=== PATIENT | female | born 1975 | race Two or more races ===

== ENCOUNTER 2021-06-15 23:20 | Inpatient (IN) | payer OTHER ==
[2021-06-15] MEDS ORDERED: ACETAMINOPHEN 1000 MG/100 ML BAG IVPB ONE (23:45)
[2021-06-15] MEDS ORDERED: SODIUM CHLORIDE 0.9% 500 ML INFUS.BAG IV ONE (23:59)
[2021-06-16 00:34] LABS: HEMATOCRIT 23.8 % (32.4-45.2); HEMOGLOBIN 7.6 GM/dL (10.7-15.3); MCH 29.1 pg (25.7-33.7); MCHC 32.1 g/dl (32.0-36.0); MEAN CELL VOLUME 90.5 fl (80-96); MEAN PLT VOLUME 7.3 fl (7.5-11.1); PLATELET COUNT 363 10^3/uL (134-434); RBC 2.63 M/mm3 (3.60-5.2); RDW 16.7 % (11.6-15.6); WHITE BLOOD COUNT 9.6 K/mm3 (4.0-10.0)
[2021-06-16 00:53] LABS: INR 1.14 (0.83-1.09); PROTHROMBIN TIME (PATIENT) 13.1 SEC (9.7-13.0)
[2021-06-16 00:55] LABS: VENOUS BASE EXCESS -2.5 mmol/L (-2-2); VENOUS O2 SATURATION 73.2 % (70-80); VENOUS PCO2 39.3 mmHg (38-52); VENOUS PH 7.375 (7.310-7.410)
[2021-06-16] MEDS ORDERED: ACETAMINOPHEN INJECTION 100 ML IVPB ONE (00:55)
[2021-06-16 00:56] LABS: ACTIVATED PTT 30.6 SECONDS (25.2-36.5)
[2021-06-16 01:02] LABS: CHLORIDE 101 mmol/L (98-107); SODIUM 135 mmol/L (136-145)
[2021-06-16] MEDS ORDERED: VANCOMYCIN 1 GM in D5W (PRE-DOCKED) 1,000 MG/250 ML IVPB ONE (01:02)
[2021-06-16] MEDS ORDERED: PIPERACILLIN/TAZOB 4.5 GM 4.5 GM in DEXTROSE 5%-WATER 100 ML IVPB ONE (01:02)
[2021-06-16 01:04] LABS: BLOOD UREA NITROGEN 25.4 mg/dL (7-18); CALCIUM 7.9 mg/dL (8.5-10.1)
[2021-06-16 01:05] LABS: ALBUMIN 2.1 g/dl (3.4-5.0); ANION GAP 12 MMOL/L (8-16); CO2 21 mmol/L (21-32)
[2021-06-16 01:08] LABS: CREATININE 1.7 mg/dL (0.55-1.3); SGOT/AST 47 U/L (15-37); SGPT/ALT 26 U/L (13-61)
[2021-06-16 01:09] LABS: BILIRUBIN,TOTAL 0.5 mg/dL (0.2-1); TOT PROT 5.9 g/dl (6.4-8.2)
[2021-06-16 01:10] LABS: ALK PHOS 104 U/L (45-117)
[2021-06-16 01:15] LABS: LACTIC ACID 2.1 mmol/L (0.4-2.0)
[2021-06-16 01:16] LABS: GLUCOSE,RANDOM 605 mg/dL (74-106)
[2021-06-16] MEDS ORDERED: HYDROmorphone HCL CARPU-JECT 2 MG/1 ML DISP.SYRIN IVPUSH ONE ×3 (01:26→05:04)
[2021-06-16] MEDS ORDERED: SODIUM CHLORIDE 0.9%/KCL 20 MEQ/1,000 ML INFUS.BAG IV SCH (01:30)
[2021-06-16] MEDS ORDERED: INSULIN REGULAR 100 UNITS in SODIUM CHLORIDE 99 ML IVPB SCH ×3 (01:30→09:00)
[2021-06-16] MEDS ORDERED: PIPERACILLIN/TAZOB 4.5 GM 4.5 GM/100 ML BAG IVPB ONE (01:42)
[2021-06-16] MEDS ORDERED: HYDROmorphone HCl 2 MG/ML VIAL ONE ×3 (01:42→05:21)
[2021-06-16 01:46] LABS: EPI CELLS 1 /uL (0-25.1); HYALINE CASTS 1 /uL (0-3.1); PH,URINE 5.5 (5.0-8.0); URINE APPEARANCE CLOUDY; URINE BACTERIA >9,000 /uL (0-1359); URINE BILIRUBIN NEGATIVE (NEGATIVE); URINE COLOR YELLOW; URINE GLUCOSE (UA) 2+ (NEGATIVE); URINE KETONE NEGATIVE (NEGATIVE); URINE LEUK ESTERASE 2+ (NEGATIVE); URINE NITRITE NEGATIVE (NEGATIVE); URINE PROTEIN 2+ (NEGATIVE); URINE RBC 63 /uL (0-23.9); URINE UROBILINOGEN 0.2 mg/dL (0.2-1.0); URINE WBC 658 /uL (0-25.8)
[2021-06-16] MEDS ORDERED: VANCOMYCIN 1 GRAM (PRE-DOCKED) 1,000 MG/250 ML BAG IVPB ONE (02:21)
[2021-06-16 03:29] LABS: ANISOCYTOSIS 1+; MACROCYTOSIS 0
[2021-06-16] MEDS ORDERED: LACTATED RINGERS SOLUTION 1000 ML INFUS.BAG IV ONE ×2 (05:52→08:55)
[2021-06-16] MEDS ORDERED: DEXTROSE 5%-0.45% SALINE 1,000 ML IV SCH (06:45)
[2021-06-16 07:30] LABS: CALCIUM 7.1 mg/dL (8.5-10.1)
[2021-06-16 07:31] LABS: BLOOD UREA NITROGEN 23.4 mg/dL (7-18)
[2021-06-16 07:34] LABS: CREATININE 1.3 mg/dL (0.55-1.3)
[2021-06-16 10:56] LABS: CALCIUM 7.2 mg/dL (8.5-10.1)
[2021-06-16 10:57] LABS: BLOOD UREA NITROGEN 21.6 mg/dL (7-18)
[2021-06-16 11:00] LABS: CREATININE 1.1 mg/dL (0.55-1.3)
[2021-06-16] MEDS ORDERED: PIPERACILLIN/TAZOB 3.375 GM 3.375 GM in DEXTROSE 5%-WATER - 50 ML IVPB ONE (11:41)
[2021-06-16] MEDS ORDERED: PIPERACILLIN/TAZOBACTAM 3.375 GM VIAL IVPB ONE ×3 (11:56→22:52)
[2021-06-16] MEDS ORDERED: DEXTROSE 5%-WATER - 50 ML IVPB ONE ×3 (11:57→22:52)
[2021-06-16] MEDS: PIPERACILLIN/TAZOB 3.375 GM 3.375 GM in DEXTROSE 5%-WATER - 50 ML IVPB SCH ×3 (12:37→22:54)
[2021-06-16] MEDS ORDERED: LORazepam 0.5 MG TABLET PO PRN (13:33)
[2021-06-16] MEDS ORDERED: LACTATED RINGERS SOLUTION 1,000 ML/1,000 ML INFUS.BAG IV SCH ×2 (14:45→17:25)
[2021-06-16] MEDS: INSULIN (NOVOLOG) ASPART 100 UNITS/ML 10ML VIAL SQ SCH (17:06)
[2021-06-16] MEDS: INSULIN SLIDING SCALE (NOVOLOG) 1 VIAL SQ SCH (17:06)
[2021-06-16 17:15] LABS: BASO % 0.5 % (0-2.0); EOS % 1.9 % (0-4.5); HEMATOCRIT 21.1 % (32.4-45.2); MCH 28.6 pg (25.7-33.7); MCHC 32.4 g/dl (32.0-36.0); MEAN CELL VOLUME 88.2 fl (80-96); MONO % 5.9 % (3.8-10.2); NEUT % 87.7 % (42.8-82.8); PLATELET COUNT 289 10^3/uL (134-434); RBC 2.39 M/mm3 (3.60-5.2); RDW 16.3 % (11.6-15.6); WHITE BLOOD COUNT 8.5 K/mm3 (4.0-10.0)
[2021-06-16 17:19] LABS: HEMOGLOBIN 6.8 GM/dL (10.7-15.3)
[2021-06-16] MEDS: ACETAMINOPHEN 1000 MG/100 ML BAG IVPB PRN (22:30)
[2021-06-17] MEDS ORDERED: VANCOMYCIN 1 GM in D5W (PRE-DOCKED) 1,000 MG/250 ML IVPB SCH (01:00)
[2021-06-17] MEDS ORDERED: VANCOMYCIN 1 GM in D5W (PRE-DOCKED) 1,000 MG/250 ML IVPB ONE ×3 (01:00→08:00)
[2021-06-17] MEDS ORDERED: PIPERACILLIN/TAZOBACTAM 3.375 GM VIAL IVPB ONE ×3 (05:29→16:14)
[2021-06-17] MEDS ORDERED: DEXTROSE 5%-WATER - 50 ML IVPB ONE ×3 (05:29→16:14)
[2021-06-17] MEDS: PIPERACILLIN/TAZOB 3.375 GM 3.375 GM in DEXTROSE 5%-WATER - 50 ML IVPB SCH ×3 (05:39→18:44)
[2021-06-17] MEDS: INSULIN (LEVEMIR) 100 UNITS/ML UNITS SQ SCH ×2 (06:54→16:52)
[2021-06-17] MEDS: INSULIN SLIDING SCALE (NOVOLOG) 1 VIAL SQ SCH ×3 (06:57→16:50)
[2021-06-17] MEDS: INSULIN (NOVOLOG) ASPART 100 UNITS/ML 10ML VIAL SQ SCH ×3 (06:59→16:52)
[2021-06-17] MEDS ORDERED: VANCOMYCIN 1 GM/200 ML PREMIX BAG IVPB ONE (08:00)
[2021-06-17] MEDS: ACETAMINOPHEN 1000 MG/100 ML BAG IVPB PRN (08:18)
[2021-06-17 08:40] LABS: HEMATOCRIT 27.2 % (32.4-45.2); HEMOGLOBIN 9.1 GM/dL (10.7-15.3); MCH 29.5 pg (25.7-33.7); MCHC 33.4 g/dl (32.0-36.0); MEAN CELL VOLUME 88.2 fl (80-96); PLATELET COUNT 310 10^3/uL (134-434); RBC 3.08 M/mm3 (3.60-5.2); RDW 15.6 % (11.6-15.6); WHITE BLOOD COUNT 8.6 K/mm3 (4.0-10.0)
[2021-06-17 08:51] LABS: CALCIUM 7.9 mg/dL (8.5-10.1)
[2021-06-17 08:52] LABS: BLOOD UREA NITROGEN 16.4 mg/dL (7-18); MAGNESIUM 1.8 mg/dL (1.8-2.4)
[2021-06-17] MEDS ORDERED: ENOXAPARIN NA (PORCINE) 40 MG/0.4 ML DISP.SYRIN SQ SCH (10:00)
[2021-06-17 10:18] LABS: ANISOCYTOSIS 1+; MACROCYTOSIS 0
[2021-06-17] MEDS ORDERED: POTASSIUM CHLORIDE TABS 20 MEQ TABLET.ER (FP) PO ONE ×2 (13:03→17:00)
[2021-06-17] MEDS ORDERED: ENOXAPARIN NA (PORCINE) 60 MG/0.6 ML DISP.SYRIN SQ ONE (13:05)
[2021-06-17] MEDS ORDERED: NAPH,MB-DB/K PH,MBDB POWDER PACKET PO ONE (13:10)
[2021-06-17] MEDS ORDERED: LACTATED RINGERS SOLUTION 1,000 ML/1,000 ML INFUS.BAG IV SCH (13:15)
[2021-06-17] MEDS ORDERED: FUROSEMIDE 40 MG/4 ML INJECTABLE VIAL IVPUSH ONE (13:23)
[2021-06-17] MEDS ORDERED: SULFAMETHOXAZOLE/TRIMETHOPRIM 800MG/160MG D.S. TABLET PO SCH (14:00)
[2021-06-17] MEDS ORDERED: LACTULOSE 20 GM/30 ML UDC (FOR ORAL USE ONLY) PO PRN (15:13)
[2021-06-17] MEDS ORDERED: SENNOSIDES 8.6MG TABLET (FP) PO PRN (15:13)
[2021-06-17] MEDS: methaDONE HCL 10 MG TABLET PO SCH ×2 (15:34→22:21)
[2021-06-17] MEDS ORDERED: ACETAMINOPHEN 500 MG TABLET (FP) PO PRN (17:42)
[2021-06-17] MEDS ORDERED: ENOXAPARIN NA (PORCINE) 60 MG/0.6 ML DISP.SYRIN SQ SCH (22:00)
[2021-06-17] MEDS ORDERED: PATIENT'S OWN MEDICATION (NON-FORMULARY) (Pregabalin [Lyrica -] 150 MG Capsule) PO SCH (22:00)
[2021-06-17] MEDS ORDERED: PREGABALIN 100 MG CAPSULE ONE (22:09)
[2021-06-17] MEDS ORDERED: PREGABALIN 50 MG CAPSULE ONE (22:09)
[2021-06-17] MEDS: BACLOFEN 10 MG TABLET (FP) PO SCH (22:20)
[2021-06-17] MEDS: PREGABALIN 100 MG, PREGABALIN 50 MG PO SCH (22:20)
[2021-06-17] MEDS: ATORVASTATIN CA 40 MG TABLET (FP) PO SCH (22:20)
[2021-06-18] MEDS ORDERED: DEXTROSE 5%-WATER - 50 ML IVPB ONE ×5 (01:02→23:33)
[2021-06-18] MEDS ORDERED: PIPERACILLIN/TAZOBACTAM 3.375 GM VIAL IVPB ONE ×5 (01:02→23:33)
[2021-06-18] MEDS: PIPERACILLIN/TAZOB 3.375 GM 3.375 GM in DEXTROSE 5%-WATER - 50 ML IVPB SCH ×5 (01:08→17:13)
[2021-06-18] MEDS: methaDONE HCL 10 MG TABLET PO SCH ×3 (06:45→22:03)
[2021-06-18] MEDS: BACLOFEN 10 MG TABLET (FP) PO SCH ×3 (06:47→22:05)
[2021-06-18] MEDS: INSULIN (NOVOLOG) ASPART 100 UNITS/ML 10ML VIAL SQ SCH ×3 (06:55→17:09)
[2021-06-18] MEDS: INSULIN SLIDING SCALE (NOVOLOG) 1 VIAL SQ SCH ×3 (06:57→17:08)
[2021-06-18] MEDS: INSULIN (LEVEMIR) 100 UNITS/ML UNITS SQ SCH ×2 (06:57→17:10)
[2021-06-18] MEDS ORDERED: PREGABALIN 50 MG CAPSULE ONE ×2 (09:01→21:53)
[2021-06-18] MEDS ORDERED: PREGABALIN 100 MG CAPSULE ONE ×2 (09:02→21:54)
[2021-06-18] MEDS ORDERED: VANCOMYCIN/WATER FOR INJ (PEG) 1,000 MG/200 ML BAG IVPB SCH (10:00)
[2021-06-18] MEDS ORDERED: ENOXAPARIN NA (PORCINE) 40 MG/0.4 ML DISP.SYRIN SQ SCH (10:00)
[2021-06-18] MEDS: DOCUSATE SODIUM 100 MG CAPSULE (FP) PO SCH (10:27)
[2021-06-18] MEDS: PREGABALIN 100 MG, PREGABALIN 50 MG PO SCH ×2 (10:27→22:03)
[2021-06-18] MEDS: MAGNESIUM OXIDE 400 MG TABLET (FP) PO SCH (10:28)
[2021-06-18] MEDS: predniSONE 10 MG TABLET (UD) PO SCH (10:28)
[2021-06-18] MEDS: POLYETHYLENE GLYCOL (HEALTHYLAX) 3350 17 GM PACKET PO SCH (10:28)
[2021-06-18] MEDS: BISACODYL 10 MG SUPP.RECT RC SCH (10:28)
[2021-06-18 12:10] LABS: BASO % 0.8 % (0-2.0); EOS % 2.5 % (0-4.5); HEMATOCRIT 25.1 % (32.4-45.2); HEMOGLOBIN 8.3 GM/dL (10.7-15.3); LYMPH % 8.4 % (8-40); MCH 28.9 pg (25.7-33.7); MCHC 33.1 g/dl (32.0-36.0); MEAN CELL VOLUME 87.4 fl (80-96); MEAN PLT VOLUME 6.7 fl (7.5-11.1); MONO % 13.3 % (3.8-10.2); PLATELET COUNT 273 10^3/uL (134-434); RBC 2.87 M/mm3 (3.60-5.2); RDW 16.3 % (11.6-15.6); WHITE BLOOD COUNT 4.9 K/mm3 (4.0-10.0)
[2021-06-18 12:34] LABS: CALCIUM 7.8 mg/dL (8.5-10.1)
[2021-06-18 12:35] LABS: ALBUMIN 1.8 g/dl (3.4-5.0); BLOOD UREA NITROGEN 12.8 mg/dL (7-18)
[2021-06-18 12:38] LABS: CREATININE 0.9 mg/dL (0.55-1.3)
[2021-06-18 12:39] LABS: BILIRUBIN,TOTAL 0.7 mg/dL (0.2-1)
[2021-06-18 12:40] LABS: TOT PROT 4.8 g/dl (6.4-8.2)
[2021-06-18 13:30] LABS: ANISOCYTOSIS 1+; MACROCYTOSIS 0; PLATELET ESTIMATE NORMAL
[2021-06-18] MEDS: ATORVASTATIN CA 40 MG TABLET (FP) PO SCH (22:05)
[2021-06-19] MEDS: PIPERACILLIN/TAZOB 3.375 GM 3.375 GM in DEXTROSE 5%-WATER - 50 ML IVPB SCH ×3 (00:05→12:50)
[2021-06-19] MEDS ORDERED: DEXTROSE 5%-WATER - 50 ML IVPB ONE ×2 (05:58→12:45)
[2021-06-19] MEDS ORDERED: PIPERACILLIN/TAZOBACTAM 3.375 GM VIAL IVPB ONE ×2 (05:58→12:45)
[2021-06-19] MEDS: BACLOFEN 10 MG TABLET (FP) PO SCH ×3 (06:13→23:28)
[2021-06-19] MEDS: methaDONE HCL 10 MG TABLET PO SCH (06:15)
[2021-06-19] MEDS: INSULIN (LEVEMIR) 100 UNITS/ML UNITS SQ SCH ×2 (06:16→16:58)
[2021-06-19] MEDS: INSULIN (NOVOLOG) ASPART 100 UNITS/ML 10ML VIAL SQ SCH ×3 (06:16→17:00)
[2021-06-19] MEDS: INSULIN SLIDING SCALE (NOVOLOG) 1 VIAL SQ SCH ×4 (06:17→16:59)
[2021-06-19] MEDS ORDERED: SULFAMETHOXAZOLE/TRIMETHOPRIM 800MG/160MG D.S. TABLET PO SCH (10:00)
[2021-06-19] MEDS ORDERED: BACITRACIN 15 GM TUBE TOPICAL OINTMENT TP SCH (10:00)
[2021-06-19] MEDS ORDERED: FUROSEMIDE 20 MG TABLET (FP) PO PRN ×2 (10:00→19:25)
[2021-06-19] MEDS ORDERED: APIXABAN 2.5 MG TABLET PO SCH (10:00)
[2021-06-19] MEDS ORDERED: PREGABALIN 50 MG CAPSULE ONE ×2 (10:42→23:03)
[2021-06-19] MEDS ORDERED: PREGABALIN 100 MG CAPSULE ONE ×2 (10:42→23:04)
[2021-06-19] MEDS ORDERED: ACETAMINOPHEN 1000 MG/100 ML BAG IVPB PRN ×2 (10:50→19:25)
[2021-06-19] MEDS ORDERED: SODIUM CHLORIDE 1,000 ML IV SCH (11:00)
[2021-06-19] MEDS ORDERED: LORazepam 2 MG/ML SDV VIAL IVPUSH ONE (11:03)
[2021-06-19] MEDS: BISACODYL 10 MG SUPP.RECT RC SCH (12:15)
[2021-06-19] MEDS ORDERED: LACTATED RINGERS SOLUTION 1000 ML INFUS.BAG IV ONE (12:23)
[2021-06-19] MEDS: DOCUSATE SODIUM 100 MG CAPSULE (FP) PO SCH (12:36)
[2021-06-19] MEDS: predniSONE 10 MG TABLET (UD) PO SCH (12:36)
[2021-06-19] MEDS: MAGNESIUM OXIDE 400 MG TABLET (FP) PO SCH (12:37)
[2021-06-19] MEDS: PREGABALIN 100 MG, PREGABALIN 50 MG PO SCH ×3 (12:37→23:29)
[2021-06-19] MEDS: POLYETHYLENE GLYCOL (HEALTHYLAX) 3350 17 GM PACKET PO SCH (12:37)
[2021-06-19] MEDS: VANCOMYCIN/WATER FOR INJ (PEG) 1,000 MG/200 ML BAG IVPB SCH (14:17)
[2021-06-19 14:30] LABS: BASO % 0.5 % (0-2.0); CALCIUM 7.5 mg/dL (8.5-10.1); EOS % 2.4 % (0-4.5); HEMATOCRIT 24.8 % (32.4-45.2); HEMOGLOBIN 8.2 GM/dL (10.7-15.3); LYMPH % 7.9 % (8-40); MCH 28.9 pg (25.7-33.7); MEAN CELL VOLUME 87.6 fl (80-96); MEAN PLT VOLUME 6.9 fl (7.5-11.1); MONO % 11.4 % (3.8-10.2); NEUT % 77.8 % (42.8-82.8); PLATELET COUNT 253 10^3/uL (134-434); RBC 2.83 M/mm3 (3.60-5.2); RDW 15.8 % (11.6-15.6); WHITE BLOOD COUNT 3.9 K/mm3 (4.0-10.0)
[2021-06-19 14:31] LABS: ALBUMIN 1.5 g/dl (3.4-5.0); BLOOD UREA NITROGEN 7.5 mg/dL (7-18); MAGNESIUM 1.6 mg/dL (1.8-2.4)
[2021-06-19] MEDS ORDERED: MAGNESIUM SULF 50% (8.12 MEQ/2 ML-1 GM VIAL) IVPB ONE (14:32)
[2021-06-19 14:34] LABS: CREATININE 0.7 mg/dL (0.55-1.3); PHOSPHOROUS 2.2 mg/dL (2.5-4.9)
[2021-06-19 14:36] LABS: BILIRUBIN,TOTAL 0.4 mg/dL (0.2-1); TOT PROT 4.2 g/dl (6.4-8.2)
[2021-06-19] MEDS: MEROPENEM 1 GM in DEXTROSE 5%-WATER 100 ML IVPB SCH ×2 (15:30→17:32)
[2021-06-19] MEDS ORDERED: MEROPENEM 1 GM VIAL (RESTRICTED TO ID) IVPB ONE (16:09)
[2021-06-19] MEDS ORDERED: DEXTROSE 5%-WATER 100 ML IVPB ONE (16:10)
[2021-06-19] MEDS ORDERED: MAGNESIUM 1GM/D5W 100ML - 100 ML IVPB IVPB ONE (16:30)
[2021-06-19] MEDS ORDERED: SODIUM CHLORIDE 1,000 ML IV STA (16:53)
[2021-06-19] MEDS ORDERED: NAPH,MB-DB/K PH,MBDB POWDER PACKET PO ONE (17:22)
[2021-06-19] MEDS ORDERED: POTASSIUM PHOSPHATE 15 MM in DEXTROSE 5%-WATER - 250 ML IVPB ONE (18:35)
[2021-06-19 18:46] LABS: BASO % 0.6 % (0-2.0); EOS % 2.3 % (0-4.5); HEMATOCRIT 32.8 % (32.4-45.2); HEMOGLOBIN 10.8 GM/dL (10.7-15.3); LYMPH % 12.9 % (8-40); MCH 29.1 pg (25.7-33.7); MCHC 32.8 g/dl (32.0-36.0); MEAN CELL VOLUME 88.7 fl (80-96); MEAN PLT VOLUME 6.7 fl (7.5-11.1); MONO % 12.4 % (3.8-10.2); NEUT % 71.8 % (42.8-82.8); PLATELET COUNT 294 10^3/uL (134-434); RDW 16.2 % (11.6-15.6); WHITE BLOOD COUNT 4.4 K/mm3 (4.0-10.0)
[2021-06-19 18:50] LABS: INR 1.09 (0.83-1.09); PROTHROMBIN TIME (PATIENT) 12.5 SEC (9.7-13.0)
[2021-06-19 18:53] LABS: ACTIVATED PTT 36.5 SECONDS (25.2-36.5)
[2021-06-19 19:10] LABS: ANISOCYTOSIS 2+; MACROCYTOSIS 0
[2021-06-19 19:11] LABS: CALCIUM 7.9 mg/dL (8.5-10.1)
[2021-06-19 19:12] LABS: ALBUMIN 1.7 g/dl (3.4-5.0)
[2021-06-19 19:15] LABS: CREATININE 0.8 mg/dL (0.55-1.3)
[2021-06-19 19:17] LABS: BILIRUBIN,TOTAL 0.4 mg/dL (0.2-1)
[2021-06-19 19:19] LABS: BLOOD UREA NITROGEN 8.6 mg/dL (7-18)
[2021-06-19 19:25] LABS: EPI CELLS 14 /uL (0-25.1); HYALINE CASTS 16 /uL (0-3.1); PH,URINE 7.5 (5.0-8.0); URINE APPEARANCE CLOUDY; URINE BACTERIA 101 /uL (0-1359); URINE BILIRUBIN NEGATIVE (NEGATIVE); URINE COLOR YELLOW; URINE GLUCOSE (UA) NEGATIVE (NEGATIVE); URINE KETONE NEGATIVE (NEGATIVE); URINE LEUK ESTERASE 2+ (NEGATIVE); URINE NITRITE NEGATIVE (NEGATIVE); URINE PROTEIN 1+ (NEGATIVE); URINE RBC 632 /uL (0-23.9); URINE UROBILINOGEN 0.2 mg/dL (0.2-1.0); URINE WBC 812 /uL (0-25.8)
[2021-06-19] MEDS ORDERED: SENNOSIDES 8.6MG TABLET (FP) PO PRN (19:25)
[2021-06-19] MEDS ORDERED: LORazepam 0.5 MG TABLET PO PRN (19:25)
[2021-06-19] MEDS ORDERED: LACTULOSE 20 GM/30 ML UDC (FOR ORAL USE ONLY) PO PRN (19:25)
[2021-06-19] MEDS: SODIUM CHLORIDE 1,000 ML IV SCH (19:51)
[2021-06-19 20:01] LABS: YEAST FEW (NEGATIVE)
[2021-06-19] MEDS ORDERED: HYDROmorphone HCL 2 MG TABLET PO PRN (22:01)
[2021-06-19] MEDS ORDERED: DEXTROSE 50%-WATER 25 GM/50 ML DISP.SYRIN ONE (23:09)
[2021-06-19] MEDS ORDERED: DEXTROSE 50%-WATER - 25 GM/50 ML VIAL IVPUSH ONE (23:13)
[2021-06-19] MEDS: MUPIROCIN 2% TOPICAL OINTMENT FOR DECOLONIZATION NS SCH ×2 (23:13→23:28)
[2021-06-19] MEDS: APIXABAN 2.5 MG TABLET PO SCH ×2 (23:14→23:28)
[2021-06-19] MEDS: ATORVASTATIN CA 40 MG TABLET (FP) PO SCH ×2 (23:14→23:28)
[2021-06-19] MEDS: CHLORHEXIDINE GLUCONATE 4% CLEANSER FOR DECOLONIZATION TP SCH (23:14)
[2021-06-19] MEDS ORDERED: DEXTROSE 5%-WATER - 1,000 ML IV SCH (23:15)
[2021-06-20] MEDS ORDERED: MEROPENEM 1 GM VIAL (RESTRICTED TO ID) IVPB ONE ×3 (01:17→16:56)
[2021-06-20] MEDS ORDERED: DEXTROSE 5%-WATER 100 ML IVPB ONE ×3 (01:17→16:56)
[2021-06-20] MEDS: VANCOMYCIN/WATER FOR INJ (PEG) 1,000 MG/200 ML BAG IVPB SCH ×3 (01:18→23:51)
[2021-06-20] MEDS: MEROPENEM 1 GM in DEXTROSE 5%-WATER 100 ML IVPB SCH ×3 (01:19→17:28)
[2021-06-20] MEDS ORDERED: INSULIN (LEVEMIR) 100 UNITS/ML UNITS SQ SCH (07:00)
[2021-06-20] MEDS: INSULIN (NOVOLOG) ASPART 100 UNITS/ML 10ML VIAL SQ SCH ×3 (07:02→18:00)
[2021-06-20] MEDS ORDERED: DEXTROSE 50%-WATER 25 GM/50 ML DISP.SYRIN IVPUSH ONE (07:02)
[2021-06-20] MEDS: INSULIN SLIDING SCALE (NOVOLOG) 1 VIAL SQ SCH ×3 (07:03→17:30)
[2021-06-20] MEDS ORDERED: DEXTROSE 50%-WATER 25 GM/50 ML DISP.SYRIN ONE (07:04)
[2021-06-20] MEDS: DEXTROSE 5%-WATER - 1,000 ML IV SCH ×2 (07:24→10:02)
[2021-06-20] MEDS ORDERED: HYDROmorphone HCl 2 MG/ML VIAL ONE (09:42)
[2021-06-20] MEDS ORDERED: HYDROmorphone HCL CARPU-JECT 2 MG/1 ML DISP.SYRIN IVPB ONE (09:45)
[2021-06-20] MEDS ORDERED: HYDROmorphone HCl 2 MG/ML VIAL IVPB ONE (09:45)
[2021-06-20] MEDS ORDERED: PREGABALIN 100 MG CAPSULE ONE ×2 (10:41→21:55)
[2021-06-20] MEDS ORDERED: PREGABALIN 50 MG CAPSULE ONE ×2 (10:41→21:55)
[2021-06-20] MEDS: APIXABAN 2.5 MG TABLET PO SCH (11:45)
[2021-06-20] MEDS: DOCUSATE SODIUM 100 MG CAPSULE (FP) PO SCH (11:56)
[2021-06-20] MEDS: ENOXAPARIN NA (PORCINE) 40 MG/0.4 ML DISP.SYRIN SQ SCH (12:19)
[2021-06-20] MEDS: LORazepam 2 MG/ML SDV VIAL IM PRN (12:19)
[2021-06-20] MEDS: FUROSEMIDE 40 MG/4 ML INJECTABLE VIAL IVPB SCH (12:19)
[2021-06-20] MEDS: POLYETHYLENE GLYCOL (HEALTHYLAX) 3350 17 GM PACKET PO SCH (12:22)
[2021-06-20] MEDS: predniSONE 10 MG TABLET (UD) PO SCH (12:22)
[2021-06-20] MEDS: MUPIROCIN 2% TOPICAL OINTMENT FOR DECOLONIZATION NS SCH ×2 (12:22→23:57)
[2021-06-20] MEDS: MAGNESIUM OXIDE 400 MG TABLET (FP) PO SCH (12:23)
[2021-06-20] MEDS: PREGABALIN 100 MG, PREGABALIN 50 MG PO SCH ×2 (12:23→23:07)
[2021-06-20] MEDS ORDERED: DEXTROSE 5%-WATER - 1,000 ML IV SCH ×2 (12:41→13:32)
[2021-06-20] MEDS ORDERED: HYDROmorphone HCl 2 MG/ML VIAL IVPB PRN (14:26)
[2021-06-20] MEDS: BISACODYL 10 MG SUPP.RECT RC SCH (14:35)
[2021-06-20] MEDS: BACITRACIN 15 GM TUBE TOPICAL OINTMENT TP SCH (14:42)
[2021-06-20 15:40] VITALS: BMI 24.4
[2021-06-20] MEDS: INSULIN (LEVEMIR) 100 UNITS/ML UNITS SQ SCH (17:29)
[2021-06-20] MEDS: BACLOFEN 10 MG TABLET (FP) PO SCH ×2 (17:36→23:47)
[2021-06-20] MEDS: ACETAMINOPHEN 1000 MG/100 ML BAG IVPB SCH (18:26)
[2021-06-20 19:54] LABS: ALBUMIN 1.8 g/dl (3.4-5.0); BLOOD UREA NITROGEN 7.5 mg/dL (7-18); EOS % 1.1 % (0-4.5); HEMATOCRIT 34.2 % (32.4-45.2); LYMPH % 19.5 % (8-40); MAGNESIUM 1.6 mg/dL (1.8-2.4); MCH 28.2 pg (25.7-33.7); MCHC 32.1 g/dl (32.0-36.0); MEAN PLT VOLUME 7.6 fl (7.5-11.1); MONO % 10.2 % (3.8-10.2); NEUT % 68.2 % (42.8-82.8); PLATELET COUNT 335 10^3/uL (134-434); RBC 3.88 M/mm3 (3.60-5.2); RDW 15.8 % (11.6-15.6); WHITE BLOOD COUNT 4.5 K/mm3 (4.0-10.0)
[2021-06-20 19:57] LABS: CREATININE 0.9 mg/dL (0.55-1.3); PHOSPHOROUS 2.1 mg/dL (2.5-4.9)
[2021-06-20 19:59] LABS: BILIRUBIN,TOTAL 0.5 mg/dL (0.2-1); TOT PROT 5.4 g/dl (6.4-8.2)
[2021-06-20] MEDS: CHLORHEXIDINE GLUCONATE 4% CLEANSER FOR DECOLONIZATION TP SCH (23:05)
[2021-06-20] MEDS: ATORVASTATIN CA 40 MG TABLET (FP) PO SCH (23:07)
[2021-06-20] MEDS: SODIUM CHLORIDE 1,000 ML IV SCH (23:14)
[2021-06-21] MEDS: ACETAMINOPHEN 1000 MG/100 ML BAG IVPB SCH ×4 (00:45→17:45)
[2021-06-21] MEDS: PREGABALIN 100 MG, PREGABALIN 50 MG PO SCH ×3 (01:03→22:18)
[2021-06-21] MEDS: ATORVASTATIN CA 40 MG TABLET (FP) PO SCH ×2 (01:05→22:19)
[2021-06-21] MEDS ORDERED: DEXTROSE 5%-WATER 100 ML IVPB ONE ×3 (02:38→17:07)
[2021-06-21] MEDS ORDERED: MEROPENEM 1 GM VIAL (RESTRICTED TO ID) IVPB ONE ×3 (02:38→17:07)
[2021-06-21] MEDS: MEROPENEM 2 GM in DEXTROSE 5%-WATER 100 ML IVPB SCH ×3 (03:03→17:39)
[2021-06-21] MEDS: ACYCLOVIR INJECTION 600 MG in DEXTROSE 5%-WATER - 100 ML IVPB SCH ×3 (03:43→18:34)
[2021-06-21] MEDS: BACLOFEN 10 MG TABLET (FP) PO SCH ×3 (05:11→23:05)
[2021-06-21 06:49] LABS: BASO % 0.4 % (0-2.0); EOS % 0.2 % (0-4.5); LYMPH % 10.3 % (8-40); MCH 28.5 pg (25.7-33.7); MCHC 32.4 g/dl (32.0-36.0); MEAN PLT VOLUME 7.5 fl (7.5-11.1); MONO % 9.4 % (3.8-10.2); NEUT % 79.7 % (42.8-82.8); PLATELET COUNT 285 10^3/uL (134-434); RBC 3.52 M/mm3 (3.60-5.2); RDW 16.1 % (11.6-15.6); WHITE BLOOD COUNT 5.1 K/mm3 (4.0-10.0)
[2021-06-21] MEDS: INSULIN (LEVEMIR) 100 UNITS/ML UNITS SQ SCH ×2 (07:27→17:38)
[2021-06-21] MEDS: INSULIN SLIDING SCALE (NOVOLOG) 1 VIAL SQ SCH ×3 (07:28→17:38)
[2021-06-21 07:50] LABS: CALCIUM 7.7 mg/dL (8.5-10.1)
[2021-06-21 07:51] LABS: ALBUMIN 1.8 g/dl (3.4-5.0); BLOOD UREA NITROGEN 9.3 mg/dL (7-18); MAGNESIUM 1.9 mg/dL (1.8-2.4)
[2021-06-21 07:54] LABS: CREATININE 0.8 mg/dL (0.55-1.3)
[2021-06-21 07:55] LABS: BILIRUBIN,TOTAL 0.4 mg/dL (0.2-1)
[2021-06-21] MEDS ORDERED: PREGABALIN 50 MG CAPSULE ONE ×2 (09:47→21:38)
[2021-06-21] MEDS ORDERED: PREGABALIN 100 MG CAPSULE ONE ×2 (09:47→21:38)
[2021-06-21] MEDS ORDERED: SULFAMETHOXAZOLE/TRIMETHOPRIM 800MG/160MG D.S. TABLET PO SCH (10:00)
[2021-06-21] MEDS: ENOXAPARIN NA (PORCINE) 40 MG/0.4 ML DISP.SYRIN SQ SCH (10:13)
[2021-06-21] MEDS: FUROSEMIDE 40 MG/4 ML INJECTABLE VIAL IVPB SCH (10:15)
[2021-06-21] MEDS: POLYETHYLENE GLYCOL (HEALTHYLAX) 3350 17 GM PACKET PO SCH (10:15)
[2021-06-21] MEDS: MAGNESIUM OXIDE 400 MG TABLET (FP) PO SCH (10:16)
[2021-06-21] MEDS: DOCUSATE SODIUM 100 MG CAPSULE (FP) PO SCH (10:16)
[2021-06-21] MEDS: predniSONE 10 MG TABLET (UD) PO SCH (10:16)
[2021-06-21] MEDS: BISACODYL 10 MG SUPP.RECT RC SCH (10:16)
[2021-06-21] MEDS: BACITRACIN 15 GM TUBE TOPICAL OINTMENT TP SCH (10:17)
[2021-06-21] MEDS: MUPIROCIN 2% TOPICAL OINTMENT FOR DECOLONIZATION NS SCH ×2 (10:17→22:18)
[2021-06-21] MEDS ORDERED: POTASSIUM CHLORIDE TABS 20 MEQ TABLET.ER (FP) PO ONE (10:34)
[2021-06-21] MEDS: SODIUM CHLORIDE 1,000 ML IV SCH (12:00)
[2021-06-21] MEDS: VANCOMYCIN/WATER FOR INJ (PEG) 1,000 MG/200 ML BAG IVPB SCH (12:01)
[2021-06-21] MEDS: LORazepam 2 MG/ML SDV VIAL IM PRN (14:20)
[2021-06-21] MEDS ORDERED: SODIUM CHLORIDE 1,000 ML IV STA ×3 (17:18→22:19)
[2021-06-21] MEDS: CHLORHEXIDINE GLUCONATE 4% CLEANSER FOR DECOLONIZATION TP SCH (22:18)
[2021-06-22] MEDS ORDERED: MEROPENEM 1 GM VIAL (RESTRICTED TO ID) IVPB ONE ×3 (00:28→18:04)
[2021-06-22] MEDS ORDERED: DEXTROSE 5%-WATER 100 ML IVPB ONE ×3 (00:28→18:04)
[2021-06-22] MEDS: ACETAMINOPHEN 1000 MG/100 ML BAG IVPB SCH (00:34)
[2021-06-22] MEDS: VANCOMYCIN/WATER FOR INJ (PEG) 1,000 MG/200 ML BAG IVPB SCH (00:36)
[2021-06-22] MEDS: MEROPENEM 2 GM in DEXTROSE 5%-WATER 100 ML IVPB SCH ×3 (01:47→18:10)
[2021-06-22] MEDS: ACYCLOVIR INJECTION 600 MG in DEXTROSE 5%-WATER - 100 ML IVPB SCH ×3 (02:25→21:02)
[2021-06-22] MEDS: BACLOFEN 10 MG TABLET (FP) PO SCH ×3 (05:32→21:41)
[2021-06-22] MEDS: INSULIN SLIDING SCALE (NOVOLOG) 1 VIAL SQ SCH ×3 (06:29→17:24)
[2021-06-22] MEDS: INSULIN (LEVEMIR) 100 UNITS/ML UNITS SQ SCH ×2 (06:29→17:25)
[2021-06-22] MEDS ORDERED: PREGABALIN 100 MG CAPSULE ONE ×2 (09:31→21:35)
[2021-06-22] MEDS ORDERED: PREGABALIN 50 MG CAPSULE ONE ×2 (09:31→21:35)
[2021-06-22] MEDS: PREGABALIN 100 MG, PREGABALIN 50 MG PO SCH ×2 (09:41→21:41)
[2021-06-22] MEDS: predniSONE 10 MG TABLET (UD) PO SCH (09:42)
[2021-06-22] MEDS: MAGNESIUM OXIDE 400 MG TABLET (FP) PO SCH (09:42)
[2021-06-22] MEDS: DOCUSATE SODIUM 100 MG CAPSULE (FP) PO SCH (09:42)
[2021-06-22] MEDS: BISACODYL 10 MG SUPP.RECT RC SCH (09:43)
[2021-06-22] MEDS: POLYETHYLENE GLYCOL (HEALTHYLAX) 3350 17 GM PACKET PO SCH (09:43)
[2021-06-22] MEDS: BACITRACIN 15 GM TUBE TOPICAL OINTMENT TP SCH (09:43)
[2021-06-22] MEDS: MUPIROCIN 2% TOPICAL OINTMENT FOR DECOLONIZATION NS SCH (09:43)
[2021-06-22] MEDS: ENOXAPARIN NA (PORCINE) 40 MG/0.4 ML DISP.SYRIN SQ SCH (09:43)
[2021-06-22] MEDS ORDERED: LACTATED RINGERS SOLUTION 1000 ML INFUS.BAG IV ONE (10:24)
[2021-06-22 11:10] LABS: SARS-CoV-2 NAA Not Detected (Not Detected)
[2021-06-22] MEDS: LACTATED RINGERS SOLUTION 1,000 ML IV SCH ×2 (11:11→11:14)
[2021-06-22] MEDS: SODIUM CHLORIDE 1,000 ML IV SCH (11:15)
[2021-06-22 11:18] LABS: BASO % 0.5 % (0-2.0); EOS % 0.8 % (0-4.5); HEMATOCRIT 29.6 % (32.4-45.2); HEMOGLOBIN 9.7 GM/dL (10.7-15.3); LYMPH % 19.2 % (8-40); MCH 28.8 pg (25.7-33.7); MCHC 32.7 g/dl (32.0-36.0); MEAN CELL VOLUME 88.1 fl (80-96); MEAN PLT VOLUME 7.3 fl (7.5-11.1); MONO % 7.8 % (3.8-10.2); NEUT % 71.7 % (42.8-82.8); PLATELET COUNT 258 10^3/uL (134-434); RBC 3.36 M/mm3 (3.60-5.2); RDW 16.6 % (11.6-15.6); WHITE BLOOD COUNT 3.4 K/mm3 (4.0-10.0)
[2021-06-22 11:44] LABS: ALBUMIN 1.6 g/dl (3.4-5.0); BLOOD UREA NITROGEN 10.8 mg/dL (7-18)
[2021-06-22 11:47] LABS: CREATININE 0.7 mg/dL (0.55-1.3)
[2021-06-22 11:48] LABS: BILIRUBIN,TOTAL 0.4 mg/dL (0.2-1); TOT PROT 4.6 g/dl (6.4-8.2)
[2021-06-22] MEDS ORDERED: SODIUM CHLORIDE 1,000 ML IV SCH (16:29)
[2021-06-22] MEDS ORDERED: SENNOSIDES 8.6MG TABLET (FP) PO PRN (16:29)
[2021-06-22] MEDS ORDERED: LACTULOSE 20 GM/30 ML UDC (FOR ORAL USE ONLY) PO PRN (16:29)
[2021-06-22] MEDS ORDERED: LORazepam 2 MG/ML SDV VIAL IM PRN (16:29)
[2021-06-22] MEDS: ATORVASTATIN CA 40 MG TABLET (FP) PO SCH (21:41)
[2021-06-23] MEDS ORDERED: DEXTROSE 5%-WATER 100 ML IVPB ONE (01:47)
[2021-06-23] MEDS ORDERED: MEROPENEM 1 GM VIAL (RESTRICTED TO ID) IVPB ONE (01:47)
[2021-06-23] MEDS ORDERED: ACETAMINOPHEN 325 MG TABLET (FP) PO ONE (01:52)
[2021-06-23] MEDS: MEROPENEM 2 GM in DEXTROSE 5%-WATER 100 ML IVPB SCH ×3 (02:43→17:16)
[2021-06-23] MEDS ORDERED: DEXTROSE 50%-WATER - 25 GM/50 ML VIAL IVPUSH PRN (02:46)
[2021-06-23] MEDS: ACYCLOVIR INJECTION 600 MG in DEXTROSE 5%-WATER - 100 ML IVPB SCH ×3 (03:27→18:45)
[2021-06-23] MEDS: BACLOFEN 10 MG TABLET (FP) PO SCH ×3 (06:02→23:07)
[2021-06-23] MEDS: INSULIN SLIDING SCALE (NOVOLOG) 1 VIAL SQ SCH ×3 (06:03→17:10)
[2021-06-23] MEDS: INSULIN (LEVEMIR) 100 UNITS/ML UNITS SQ SCH ×2 (06:03→17:11)
[2021-06-23 08:25] LABS: BASO % 0.6 % (0-2.0); EOS % 0.6 % (0-4.5); HEMATOCRIT 26.7 % (32.4-45.2); HEMOGLOBIN 8.8 GM/dL (10.7-15.3); LYMPH % 24.6 % (8-40); MCH 28.8 pg (25.7-33.7); MCHC 33.1 g/dl (32.0-36.0); MEAN PLT VOLUME 7.1 fl (7.5-11.1); MONO % 10.8 % (3.8-10.2); NEUT % 63.4 % (42.8-82.8); PLATELET COUNT 234 10^3/uL (134-434); RBC 3.07 M/mm3 (3.60-5.2); RDW 16.6 % (11.6-15.6); WHITE BLOOD COUNT 3.1 K/mm3 (4.0-10.0)
[2021-06-23 08:42] LABS: ALBUMIN 1.5 g/dl (3.4-5.0); BLOOD UREA NITROGEN 10.4 mg/dL (7-18); CALCIUM 7.1 mg/dL (8.5-10.1)
[2021-06-23 08:45] LABS: CREATININE 0.7 mg/dL (0.55-1.3)
[2021-06-23 08:47] LABS: BILIRUBIN,TOTAL 0.6 mg/dL (0.2-1); TOT PROT 4.2 g/dl (6.4-8.2)
[2021-06-23] MEDS ORDERED: PREGABALIN 50 MG CAPSULE ONE ×2 (09:47→21:25)
[2021-06-23] MEDS ORDERED: PREGABALIN 100 MG CAPSULE ONE ×2 (09:48→21:26)
[2021-06-23] MEDS: VANCOMYCIN/WATER FOR INJ (PEG) 1,000 MG/200 ML BAG IVPB SCH (09:56)
[2021-06-23] MEDS: MAGNESIUM OXIDE 400 MG TABLET (FP) PO SCH (09:56)
[2021-06-23] MEDS: ENOXAPARIN NA (PORCINE) 40 MG/0.4 ML DISP.SYRIN SQ SCH (09:56)
[2021-06-23] MEDS: DOCUSATE SODIUM 100 MG CAPSULE (FP) PO SCH (09:56)
[2021-06-23] MEDS: PREGABALIN 100 MG, PREGABALIN 50 MG PO SCH ×2 (09:57→23:06)
[2021-06-23] MEDS: POLYETHYLENE GLYCOL (HEALTHYLAX) 3350 17 GM PACKET PO SCH (09:57)
[2021-06-23] MEDS ORDERED: predniSONE 10 MG TABLET (UD) PO SCH (10:00)
[2021-06-23] MEDS: BISACODYL 10 MG SUPP.RECT RC SCH (10:03)
[2021-06-23] MEDS: SODIUM CHLORIDE 1,000 ML IV SCH (17:21)
[2021-06-23] MEDS: ATORVASTATIN CA 40 MG TABLET (FP) PO SCH (23:06)
[2021-06-24] MEDS ORDERED: MEROPENEM 1 GM VIAL (RESTRICTED TO ID) IVPB ONE ×2 (00:32→11:32)
[2021-06-24] MEDS ORDERED: DEXTROSE 5%-WATER 100 ML IVPB ONE ×2 (00:32→11:32)
[2021-06-24] MEDS: MEROPENEM 2 GM in DEXTROSE 5%-WATER 100 ML IVPB SCH ×3 (01:37→17:11)
[2021-06-24] MEDS: ACYCLOVIR INJECTION 600 MG in DEXTROSE 5%-WATER - 100 ML IVPB SCH ×3 (02:53→17:12)
[2021-06-24] MEDS: BACLOFEN 10 MG TABLET (FP) PO SCH ×3 (06:32→21:52)
[2021-06-24] MEDS: INSULIN SLIDING SCALE (NOVOLOG) 1 VIAL SQ SCH ×3 (06:33→17:05)
[2021-06-24] MEDS: INSULIN (LEVEMIR) 100 UNITS/ML UNITS SQ SCH ×2 (06:34→17:08)
[2021-06-24 07:05] LABS: BASO % 0.7 % (0-2.0); EOS % 0.3 % (0-4.5); HEMATOCRIT 27.8 % (32.4-45.2); HEMOGLOBIN 9.1 GM/dL (10.7-15.3); LYMPH % 24.6 % (8-40); MCH 28.7 pg (25.7-33.7); MCHC 32.8 g/dl (32.0-36.0); MEAN CELL VOLUME 87.6 fl (80-96); MEAN PLT VOLUME 7.3 fl (7.5-11.1); MONO % 11.9 % (3.8-10.2); NEUT % 62.5 % (42.8-82.8); PLATELET COUNT 238 10^3/uL (134-434); RBC 3.17 M/mm3 (3.60-5.2); RDW 16.5 % (11.6-15.6); WHITE BLOOD COUNT 3.7 K/mm3 (4.0-10.0)
[2021-06-24 07:40] LABS: BLOOD UREA NITROGEN 8.7 mg/dL (7-18); CALCIUM 7.3 mg/dL (8.5-10.1)
[2021-06-24 07:42] LABS: ALBUMIN 1.7 g/dl (3.4-5.0)
[2021-06-24 07:44] LABS: CREATININE 0.7 mg/dL (0.55-1.3)
[2021-06-24 07:45] LABS: BILIRUBIN,TOTAL 0.8 mg/dL (0.2-1); TOT PROT 4.7 g/dl (6.4-8.2)
[2021-06-24] MEDS: BACITRACIN 15 GM TUBE TOPICAL OINTMENT TP SCH ×2 (10:00→19:46)
[2021-06-24] MEDS ORDERED: PREGABALIN 100 MG CAPSULE ONE ×2 (11:31→21:49)
[2021-06-24] MEDS ORDERED: PREGABALIN 50 MG CAPSULE ONE ×2 (11:31→21:49)
[2021-06-24] MEDS: POLYETHYLENE GLYCOL (HEALTHYLAX) 3350 17 GM PACKET PO SCH (11:35)
[2021-06-24] MEDS: VANCOMYCIN/WATER FOR INJ (PEG) 1,000 MG/200 ML BAG IVPB SCH (11:36)
[2021-06-24] MEDS: ENOXAPARIN NA (PORCINE) 40 MG/0.4 ML DISP.SYRIN SQ SCH ×2 (11:36→11:43)
[2021-06-24] MEDS: PREGABALIN 100 MG, PREGABALIN 50 MG PO SCH ×2 (11:38→21:52)
[2021-06-24] MEDS: MAGNESIUM OXIDE 400 MG TABLET (FP) PO SCH (11:39)
[2021-06-24] MEDS: BISACODYL 10 MG SUPP.RECT RC SCH (11:39)
[2021-06-24] MEDS: DOCUSATE SODIUM 100 MG CAPSULE (FP) PO SCH (11:39)
[2021-06-24] MEDS: SODIUM CHLORIDE 1,000 ML IV SCH (17:10)
[2021-06-24] MEDS: ATORVASTATIN CA 40 MG TABLET (FP) PO SCH (21:52)
[2021-06-25] MEDS ORDERED: MEROPENEM 1 GM VIAL (RESTRICTED TO ID) IVPB ONE ×2 (01:39→09:52)
[2021-06-25] MEDS ORDERED: DEXTROSE 5%-WATER 100 ML IVPB ONE ×2 (01:39→09:53)
[2021-06-25] MEDS: MEROPENEM 2 GM in DEXTROSE 5%-WATER 100 ML IVPB SCH ×3 (01:43→18:08)
[2021-06-25] MEDS: ACYCLOVIR INJECTION 600 MG in DEXTROSE 5%-WATER - 100 ML IVPB SCH ×2 (01:44→10:35)
[2021-06-25] MEDS ORDERED: HYDROmorphone HCl 2 MG/ML VIAL IVPB ONE (03:37)
[2021-06-25] MEDS ORDERED: HYDROmorphone HCL CARPU-JECT 2 MG/1 ML DISP.SYRIN IVPUSH ONE (03:37)
[2021-06-25] MEDS: BACLOFEN 10 MG TABLET (FP) PO SCH ×3 (06:05→22:37)
[2021-06-25] MEDS: INSULIN SLIDING SCALE (NOVOLOG) 1 VIAL SQ SCH ×3 (06:05→16:54)
[2021-06-25] MEDS: INSULIN (LEVEMIR) 100 UNITS/ML UNITS SQ SCH ×2 (06:06→16:54)
[2021-06-25] MEDS: ENOXAPARIN NA (PORCINE) 40 MG/0.4 ML DISP.SYRIN SQ SCH (10:36)
[2021-06-25] MEDS: BACITRACIN 15 GM TUBE TOPICAL OINTMENT TP SCH (10:37)
[2021-06-25] MEDS: DOCUSATE SODIUM 100 MG CAPSULE (FP) PO SCH (12:21)
[2021-06-25] MEDS: MAGNESIUM OXIDE 400 MG TABLET (FP) PO SCH (12:22)
[2021-06-25] MEDS: PREGABALIN 100 MG, PREGABALIN 50 MG PO SCH ×2 (12:22→22:37)
[2021-06-25] MEDS: POLYETHYLENE GLYCOL (HEALTHYLAX) 3350 17 GM PACKET PO SCH (12:22)
[2021-06-25] MEDS: VANCOMYCIN/WATER FOR INJ (PEG) 1,000 MG/200 ML BAG IVPB SCH (12:25)
[2021-06-25] MEDS: BISACODYL 10 MG SUPP.RECT RC SCH (12:25)
[2021-06-25] MEDS: KCL 10 MEQ IVPB 10 MEQ/100 ML INFUS.BAG IVPB SCH ×2 (14:00→16:02)
[2021-06-25] MEDS: SODIUM CHLORIDE 1,000 ML IV SCH (16:58)
[2021-06-25] MEDS ORDERED: PREGABALIN 50 MG CAPSULE ONE (22:26)
[2021-06-25] MEDS ORDERED: PREGABALIN 100 MG CAPSULE ONE (22:27)
[2021-06-25] MEDS: ATORVASTATIN CA 40 MG TABLET (FP) PO SCH (22:37)
[2021-06-26] MEDS: MEROPENEM 2 GM in DEXTROSE 5%-WATER 100 ML IVPB SCH ×2 (02:25→10:16)
[2021-06-26] MEDS: SODIUM CHLORIDE 1,000 ML IV SCH (02:25)
[2021-06-26] MEDS: BACLOFEN 10 MG TABLET (FP) PO SCH ×2 (06:34→14:09)
[2021-06-26] MEDS: INSULIN SLIDING SCALE (NOVOLOG) 1 VIAL SQ SCH ×2 (06:34→12:13)
[2021-06-26] MEDS: INSULIN (LEVEMIR) 100 UNITS/ML UNITS SQ SCH (06:35)
[2021-06-26] MEDS ORDERED: PREGABALIN 100 MG CAPSULE ONE (10:10)
[2021-06-26] MEDS ORDERED: PREGABALIN 50 MG CAPSULE ONE (10:10)
[2021-06-26] MEDS: POLYETHYLENE GLYCOL (HEALTHYLAX) 3350 17 GM PACKET PO SCH (10:14)
[2021-06-26] MEDS: BACITRACIN 15 GM TUBE TOPICAL OINTMENT TP SCH (10:14)
[2021-06-26] MEDS: BISACODYL 10 MG SUPP.RECT RC SCH (10:14)
[2021-06-26] MEDS: ENOXAPARIN NA (PORCINE) 40 MG/0.4 ML DISP.SYRIN SQ SCH (10:15)
[2021-06-26] MEDS: DOCUSATE SODIUM 100 MG CAPSULE (FP) PO SCH (10:15)
[2021-06-26] MEDS: MAGNESIUM OXIDE 400 MG TABLET (FP) PO SCH (10:16)
[2021-06-26] MEDS: PREGABALIN 100 MG, PREGABALIN 50 MG PO SCH (10:16)
[2021-06-26] MEDS: VANCOMYCIN/WATER FOR INJ (PEG) 1,000 MG/200 ML BAG IVPB SCH (10:16)
[2021-06-26 13:01] LABS: HEMOGLOBIN 9.6 GM/dL (10.7-15.3); MCH 28.9 pg (25.7-33.7); MCHC 33.1 g/dl (32.0-36.0); MEAN CELL VOLUME 87.4 fl (80-96); MEAN PLT VOLUME 7.5 fl (7.5-11.1); PLATELET COUNT 243 10^3/uL (134-434); RBC 3.32 M/mm3 (3.60-5.2); RDW 16.4 % (11.6-15.6)
[2021-06-26 13:26] LABS: CALCIUM 7.8 mg/dL (8.5-10.1)
[2021-06-26 13:27] LABS: ALBUMIN 1.8 g/dl (3.4-5.0); BLOOD UREA NITROGEN 12.2 mg/dL (7-18)
[2021-06-26 13:30] LABS: CREATININE 0.7 mg/dL (0.55-1.3)
[2021-06-26 13:31] LABS: TOT PROT 5.2 g/dl (6.4-8.2)
[2021-06-26 13:32] LABS: BILIRUBIN,TOTAL 0.6 mg/dL (0.2-1)
[2021-06-26 15:33] VITALS: BP 96/58; PULSE 108; TEMP 99
== END 2021-06-26 16:00 | disposition short-term general hospital (02) | DRG 871 ==
LOC: JER 23:20 → JERBED 06-16 05:44 → J6S 06-16 11:42 → JICU 06-19 12:03 → J4S 06-22 17:28
PROVIDERS: ADMIT Internal Medicine Pulmonary Disease
DX: A41.9 Sepsis, unspecified organism (principal); G92.8 Other toxic encephalopathy; N39.0 Urinary tract infection, site not specified; C79.51 Secondary malignant neoplasm of bone; R64 Cachexia; C53.9 Malignant neoplasm of cervix uteri, unspecified; E10.65 Type 1 diabetes mellitus with hyperglycemia; R33.9 Retention of urine, unspecified; D64.9 Anemia, unspecified; G89.4 Chronic pain syndrome; G89.3 Neoplasm related pain (acute) (chronic); F29 Unspecified psychosis not due to a substance or known physiological condition; R65.20 Severe sepsis without septic shock; Z86.718 Personal history of other venous thrombosis and embolism; Z68.24 Body mass index [BMI] 24.0-24.9, adult
CPT/HCPCS: 36415; 36430; 70450-TC; 71045-TC-FY; 74176-TC; 80048; 80053; 81003; 82010; 82272; 82550; 82553; 82803; 82962; 83036; 83605; 83735; 84100; 84484; 85025; 85027; 85610; 85730; 86850; 86900; 86901; 86922; 87040; 87077; 87086; 87186; 93005; 93010; 93970-TC; 99285-25; C9803-CS; G0480; J0475; P9058; U0003; U0005